=== PATIENT | male | born 1995 | race African-American/Black ===

== ENCOUNTER 2019-04-22 15:33 | Emergency (ER) | payer MEDICAID ==
[~2019-04-22] VITALS: Ht 167.6 cm; Wt 68.0 kg
[2019-04-22] MEDS ORDERED: ONDANSETRON HCL 4MG/2ML INJ IV ONE (16:15)
[2019-04-22] MEDS ORDERED: SODIUM CHLORIDE 0.9% 1,000 ML IV ONE (16:15)
[2019-04-22] MEDS ORDERED: ACETAMINOPHEN 325MG TABLET PO ONE (16:30)
[2019-04-22] MEDS ORDERED: KETOROLAC 15MG/ML VIAL IV NR (18:15)
[2019-04-22 19:49] VITALS: BP 112/70
== END 2019-04-22 19:50 | disposition home or self-care (01) ==
LOC: ER 15:33
DX: J10.1 Influenza due to other identified influenza virus with other respiratory manifestations (principal); R50.9 Fever, unspecified; R05 Cough; R00.0 Tachycardia, unspecified
CPT/HCPCS: 71045; 87804; 96374; 96375; 99284; J1885; J2405; J7030

== ENCOUNTER 2023-07-26 06:33 | Emergency (ER) | payer MEDICAID, OTHER ==
[~2023-07-26] VITALS: Ht 185.4 cm; Wt 110.0 kg
[2023-07-26 06:37] VITALS: O2SAT 96
[2023-07-26 07:23] LABS: BASOPHILS % 0.2 % (0.0-2.0); EOSINOPHILS % 1.7 % (0.0-5.0); HEMOGLOBIN. 15.1 g/dL (14.0-18.0); LYMPHOCYTES % 33.9 % (20.0-50.0); MEAN CORPUSCULAR HEMOGLOBIN 30.2 pg (28.0-32.0); MEAN CORPUSCULAR HGB CONC 33.6 g/dL (31.0-37.0); MEAN CORPUSCULAR VOLUME 89.8 fL (80.0-94.0); MONOCYTES % 6.5 % (2.0-8.0); NEUTROPHILS % 57.7 % (40.0-76.0); PLATELET 322 x1000/uL (130-400); RED CELL DISTRIBUTION WIDTH 14.4 % (11.6-14.6); WHITE BLOOD COUNT 14.1 x1000/uL (4.5-11.0)
[2023-07-26] MEDS: ONDANSETRON HCL 4MG/2ML INJ IV ONE (07:49)
[2023-07-26] MEDS: IBUPROFEN 400MG TABLET PO ONE (08:24)
[2023-07-26 09:54] LABS: ALANINE AMINOTRANSFERASE 62 IU/L (10-49); ALBUMIN 4.4 g/dL (3.2-4.8); ASPARTATE AMINOTRANSFERASE 35 IU/L (<34); BILIRUBIN TOTAL 0.3 mg/dL (0.1-1.0); CALCIUM 8.1 mg/dL (8.7-10.4); CARBON DIOXIDE 14 mEq/L (21-32); CHLORIDE 101 mEq/L (98-107); CREATININE 1.1 mg/dL (0.6-1.3); GLUCOSE 191 mg/dL (70-105); POTASSIUM 3.5 mEq/L (3.5-5.1); PROTEIN TOTAL 6.7 g/dL (6.0-8.3); SODIUM 134 mEq/L (136-145); UREA NITROGEN BLOOD 14 mg/dL (9-23)
[2023-07-26 09:55] LABS: ETHANOL BLOOD < 10 mg/dL (<10)
[2023-07-26 10:39] VITALS: BP 125/84; PULSE 77; RESP 12; TEMP 97.9
== END 2023-07-26 10:44 | disposition home or self-care (01) ==
LOC: ER 06:40 → CANBEDREQ 10:12 → ER 10:44
DX: R56.9 Unspecified convulsions (principal)
CPT/HCPCS: 80053; 80320; 85025; 36415; 70450; 96374; 99285; J2405; Z7610; G0480